=== PATIENT | female | born 1975 | race Two or more races ===

== ENCOUNTER 2021-03-02 03:30 | Emergency (ER) | payer OTHER ==
[~2021-03-02] VITALS: Ht 152.4 cm; Wt 86.2 kg
[2021-03-02 03:34] VITALS: BP 162/107
[2021-03-02 05:18] LABS: Urine Bacteria FEW /hpf (None Seen); Urine Blood 3+ /uL (Negative); Urine Specific Gravity 1.026 (1.001-1.035); Urine WBC 2 /hpf (0 - 5)
== END 2021-03-02 04:49 | disposition left against medical advice (07) ==
LOC: ER 03:30
DX: R11.2 Nausea with vomiting, unspecified (principal); R51.9 Headache, unspecified; Z53.21 Procedure and treatment not carried out due to patient leaving prior to being seen by health care provider
CPT/HCPCS: 81001; 81025